=== PATIENT | male | born 1985 | race Caucasian/White ===

== ENCOUNTER 2019-06-28 07:01 | Emergency (ER) | payer MEDICAID ==
--- NOTE | 2019-06-28 07:42 | EDM.PDOC ---
ED HPI GENERAL MEDICAL PROBLEM - General Chief Complaint: Skin Complaint Stated Complaint: INFECTED RIGHT THUMB Time Seen by Provider: 06/28/19 07:20 Source of Information: Reports: Patient History Limitations: Reports: No Limitations - History of Present Illness INITIAL COMMENTS - FREE TEXT/NARRATIVE: 33-year-old male with a swollen painful right thumb with some purulent drainage from the poorly healing curved laceration sustained 5 days ago. He cut his thumb, but did not come in for repair because he lacks health insurance. He put some utter balm on his thumb and now apparently it has become infected with some drainage, swelling and redness. He has no fever or erythema extending from the thumb. Onset: Gradual Duration: Day(s): (5 days) Location: Reports: Upper Extremity, Right Associated Symptoms: Reports: No Other Symptoms - Related Data Allergies Allergy/AdvReac Type Severity Reaction Status Date / Time No Known Allergies Allergy Verified 10/03/13 15:09 Home Meds: Home Meds NK [No Known Home Meds] 10/03/13 [History] Social & Family History - Tobacco Use Smoking Status *Q: Heavy Tobacco Smoker Years of Tobacco use: 20 Packs/Tins Daily: 0.5 - Caffeine Use Caffeine Use: Reports: Coffee, Energy Drinks, Soda - Recreational Drug Use Recreational Drug Use: Yes Recreational Drug Type: Reports: Marijuana/Hashish ED ROS GENERAL - Review of Systems Review Of Systems: See Below Constitutional: Denies: Fever, Chills Respiratory: Denies: Shortness of Breath Cardiovascular: Denies: Chest Pain GI/Abdominal: Denies: Nausea, Vomiting Neurological: Denies: Paresthesia ED EXAM, SKIN/RASH Exam: See Below Exam Limited By: No Limitations General Appearance: Alert, No Apparent Distress (Patient looks uncomfortable but not distressed) Respiratory/Chest: No Respiratory Distress Extremities: Other (Exam is otherwise limited to the right hand. He has a 3 cm curved laceration over the IP joint of the right posterior thumb with erythema and swelling, significant tenderness to palpation) Course - Vital Signs Last Recorded V/S: Last Vital Signs Temp 97.3 F 06/28/19 07:25 Pulse 96 06/28/19 07:25 Resp 16 06/28/19 07:25 BP 120/69 06/28/19 07:25 Pulse Ox 98 06/28/19 07:25 - Re-Assessments/Exams Free Text/Narrative Re-Assessment/Exam: 06/28/19 09:19 Patient wants to try a course of oral antibiotics and warm soaks before any procedures or IV antibiotics to limit the cost. He was started on Augmentin 875 mg twice daily and encouraged to soak the thumb in warm soapy water at least twice a day. He needs to return if worsening, this likely will eventually drain and heal if he keeps it clean and takes the antibiotic. Departure - Departure Time of Disposition: 07:46 Disposition: Home, Self-Care 01 Clinical Impression: Cellulitis of thumb, right - Discharge Information Instructions: Cellulitis, Adult, [id number] Referrals: PCP,None [Primary Care Provider] - Forms: ED Department Discharge Care Plan Goals: Take antibiotic twice daily with food, soak in warm water at least twice daily and use ibuprofen for pain. Recheck in 2 to 3 days if not improving. Sepsis Event Note - Evaluation Sepsis Screening Result: No Definite Risk - Focused Exam Vital Signs: Vital Signs Temp Pulse Resp BP Pulse Ox 06/28/19 07:25 97.3 F 96 16 120/69 98 06/28/19 07:21 97.3 F 96 16 120/69 98 Date Exam was Performed: 06/28/19 Time Exam was Performed: 09:17
== END 2019-06-28 07:45 | disposition home or self-care (01) ==
LOC: JP.ED 07:01
DX: L03.011 Cellulitis of right finger (principal); F17.210 Nicotine dependence, cigarettes, uncomplicated
CPT/HCPCS: 99283